=== PATIENT | male | born 1965 | race Caucasian/White ===

== ENCOUNTER → 2019-06-03 | Outpatient (CLI) | payer OTHER | LOC: YHH 15:42 ==

== ENCOUNTER 2021-09-27 02:50 | Observation (INO) | payer OTHER ==
[2021-09-27] MEDS ORDERED: FAMOTIDINE 20 MG/50 ML IVPB 20 MG/50 ML MG IVPB ONE ×2 (03:21→04:54)
[2021-09-27] MEDS ORDERED: SODIUM CHLORIDE 0.9% 500 ML INFUS.BAG IV ONE (03:21)
[2021-09-27] MEDS ORDERED: ONDANSETRON 4 MG/2 ML VIAL IVPUSH ONE (03:48)
[2021-09-27] MEDS ORDERED: ONDANSETRON 4 MG/2 ML VIAL ONE (04:54)
[2021-09-27 05:02] LABS: BASO % 0.9 % (0-2.0); HEMATOCRIT 38.1 % (35.4-49); HEMOGLOBIN 13.5 GM/dL (11.7-16.9); LYMPH % 10.7 % (8-40); MCH 31.7 pg (25.7-33.7); MCHC 35.5 g/dl (32.0-35.9); MEAN CELL VOLUME 89.5 fl (80-96); MEAN PLT VOLUME 6.4 fl (7.5-11.1); MONO % 5.1 % (3.8-10.2); NEUT % 83.3 % (42.8-82.8); PLATELET COUNT 238 10^3/uL (134-434); RBC 4.26 M/mm3 (4.00-5.60); RDW 13.2 % (11.9-15.9); WHITE BLOOD COUNT 5.3 K/mm3 (4.0-10.0)
[2021-09-27 05:23] LABS: CHLORIDE 89 mmol/L (98-107); SODIUM 121 mmol/L (136-145)
[2021-09-27 05:25] LABS: BLOOD UREA NITROGEN 7.2 mg/dL (7-18); CALCIUM 8.2 mg/dL (8.5-10.1)
[2021-09-27 05:26] LABS: ALBUMIN 3.2 g/dl (3.4-5.0); ANION GAP 10 MMOL/L (8-16); CO2 23 mmol/L (21-32); GLUCOSE,RANDOM 127 mg/dL (74-106); LIPASE 74 U/L (73-393); MAGNESIUM 1.9 mg/dL (1.8-2.4)
[2021-09-27 05:28] LABS: CREATININE 0.6 mg/dL (0.55-1.3)
[2021-09-27 05:29] LABS: SGOT/AST 18 U/L (15-37); SGPT/ALT 15 U/L (13-61)
[2021-09-27 05:30] LABS: TOT PROT 7.4 g/dl (6.4-8.2)
[2021-09-27 05:32] LABS: ALK PHOS 125 U/L (45-117)
[2021-09-27 08:08] LABS: BILIRUBIN,TOTAL 0.4 mg/dL (0.2-1)
[2021-09-27 08:13] LABS: PH,URINE 7.5 (5.0-8.0); URINE APPEARANCE CLEAR; URINE BILIRUBIN NEGATIVE (NEGATIVE); URINE COLOR YELLOW; URINE GLUCOSE (UA) NEGATIVE (NEGATIVE); URINE KETONE NEGATIVE (NEGATIVE); URINE LEUK ESTERASE NEGATIVE (NEGATIVE); URINE NITRITE NEGATIVE (NEGATIVE); URINE PROTEIN NEGATIVE (NEGATIVE); URINE UROBILINOGEN 0.2 mg/dL (0.2-1.0)
[2021-09-27] MEDS ORDERED: SODIUM CHLORIDE 1,000 ML IV SCH (09:15)
[2021-09-27 09:34] LABS: CREATININE, URINE RANDOM < 13.0 mg/dL (30-150)
[2021-09-27] MEDS: EMTRICITAB/RILPIVIRI/TENOF ALA (ODEFSEY) TABLET PO SCH (10:36)
[2021-09-27] MEDS: TRIHEXYPHENIDYL HCL 5 MG TABLET PO SCH ×3 (10:36→22:40)
[2021-09-27] MEDS ORDERED: diphenhydrAMINE HCL 25 MG CAPSULE (FP) PO ONE (18:32)
[2021-09-27] MEDS: diphenhydrAMINE HCL 25 MG CAPSULE (FP) PO PRN (18:34)
[2021-09-27] MEDS ORDERED: MAG HYDROX/AL HYDROX/SIMETH 30 ML UNIT-DOSE CUP PO ONE (22:00)
[2021-09-27] MEDS ORDERED: ACETAMINOPHEN 325 MG TABLET (FP) PO ONE (22:00)
[2021-09-27] MEDS ORDERED: ACETAMINOPHEN 325 MG TABLET (FP) ONE (22:03)
[2021-09-27] MEDS ORDERED: MAG HYDROX/AL HYDROX/SIMETH 30 ML UNIT-DOSE CUP ONE (22:04)
[2021-09-27] MEDS: NICOTINE 21 MG/24 HOURS TOPICAL PATCH TD SCH (23:50)
[2021-09-28] MEDS ORDERED: ONDANSETRON 4 MG/2 ML VIAL IVPUSH ONE (01:19)
[2021-09-28] MEDS ORDERED: LORazepam 2 MG/ML SDV VIAL IM ONE (01:27)
[2021-09-28] MEDS: amLODIPine BESYLATE 2.5 MG TABLET (FP) PO SCH (06:05)
[2021-09-28] MEDS: TRIHEXYPHENIDYL HCL 5 MG TABLET PO SCH ×3 (06:05→21:26)
[2021-09-28] MEDS ORDERED: PT OWN MED DRAWER 7, Y5N ONE ×2 (08:59→13:15)
[2021-09-28] MEDS: NICOTINE 21 MG/24 HOURS TOPICAL PATCH TD SCH (09:30)
[2021-09-28] MEDS: EMTRICITAB/RILPIVIRI/TENOF ALA (ODEFSEY) TABLET PO SCH (13:16)
[2021-09-28] MEDS: LORazepam 2 MG/ML SDV VIAL IM PRN (13:44)
[2021-09-28] MEDS ORDERED: ONDANSETRON 8 MG TABLET (FP) PO PRN (15:00)
[2021-09-28 17:30] LABS: BASO % 1.3 % (0-2.0); EOS % 0.2 % (0-4.5); HEMATOCRIT 41.6 % (35.4-49); HEMOGLOBIN 14.3 GM/dL (11.7-16.9); LYMPH % 26.3 % (8-40); MCH 31.4 pg (25.7-33.7); MCHC 34.4 g/dl (32.0-35.9); MEAN CELL VOLUME 91.4 fl (80-96); MEAN PLT VOLUME 7.2 fl (7.5-11.1); MONO % 13.9 % (3.8-10.2); NEUT % 58.3 % (42.8-82.8); PLATELET COUNT 267 10^3/uL (134-434); RBC 4.55 M/mm3 (4.00-5.60); RDW 13.9 % (11.9-15.9); WHITE BLOOD COUNT 4.4 K/mm3 (4.0-10.0)
[2021-09-28 17:37] LABS: CALCIUM 8.7 mg/dL (8.5-10.1)
[2021-09-28 17:38] LABS: ALBUMIN 3.1 g/dl (3.4-5.0); BLOOD UREA NITROGEN 5.8 mg/dL (7-18)
[2021-09-28 17:41] LABS: CREATININE 0.7 mg/dL (0.55-1.3)
[2021-09-28 17:43] LABS: BILIRUBIN,TOTAL 0.4 mg/dL (0.2-1); TOT PROT 7.2 g/dl (6.4-8.2)
[2021-09-28] MEDS ORDERED: SODIUM CHLORIDE 0.45% 1,000 ML IV SCH (18:15)
[2021-09-28] MEDS: ONDANSETRON 4 MG TABLET PO PRN (18:16)
[2021-09-28] MEDS ORDERED: ACETAMINOPHEN 325 MG TABLET (FP) PO ONE (21:46)
[2021-09-29] MEDS: ONDANSETRON 4 MG TABLET PO PRN (02:09)
[2021-09-29] MEDS: TRIHEXYPHENIDYL HCL 5 MG TABLET PO SCH ×3 (05:48→22:52)
[2021-09-29] MEDS: amLODIPine BESYLATE 2.5 MG TABLET (FP) PO SCH (06:02)
[2021-09-29] MEDS ORDERED: PT OWN MED DRAWER 7, Y5N ONE ×2 (08:23→21:20)
[2021-09-29 08:37] LABS: CALCIUM 8.7 mg/dL (8.5-10.1)
[2021-09-29 08:38] LABS: ALBUMIN 3.1 g/dl (3.4-5.0); BLOOD UREA NITROGEN 5.2 mg/dL (7-18)
[2021-09-29 08:41] LABS: CREATININE 0.7 mg/dL (0.55-1.3)
[2021-09-29 08:43] LABS: BILIRUBIN,TOTAL 0.7 mg/dL (0.2-1)
[2021-09-29] MEDS: NICOTINE 21 MG/24 HOURS TOPICAL PATCH TD SCH (09:07)
[2021-09-29] MEDS: ACETAMINOPHEN 325 MG TABLET (FP) PO PRN ×2 (09:07→18:23)
[2021-09-29] MEDS: EMTRICITAB/RILPIVIRI/TENOF ALA (ODEFSEY) TABLET PO SCH (09:08)
[2021-09-29] MEDS: diphenhydrAMINE HCL 25 MG CAPSULE (FP) PO PRN ×3 (10:05→22:52)
[2021-09-29 10:44] LABS: BASO % 0.3 % (0-2.0); EOS % 0.5 % (0-4.5); HEMATOCRIT 41.1 % (35.4-49); HEMOGLOBIN 14.3 GM/dL (11.7-16.9); LYMPH % 36.9 % (8-40); MCH 31.6 pg (25.7-33.7); MCHC 34.8 g/dl (32.0-35.9); MEAN PLT VOLUME 7.5 fl (7.5-11.1); MONO % 13.7 % (3.8-10.2); NEUT % 48.6 % (42.8-82.8); PLATELET COUNT 277 10^3/uL (134-434); RBC 4.52 M/mm3 (4.00-5.60); RDW 13.8 % (11.9-15.9)
[2021-09-29 12:18] VITALS: BMI 17.6
[2021-09-29] MEDS: SODIUM CHLORIDE 1 GM TABLET PO SCH ×2 (13:13→22:51)
[2021-09-29] MEDS: LIDOCAINE 5% TOPICAL PATCH TP SCH (13:13)
[2021-09-29] MEDS: LORazepam 2 MG/ML SDV VIAL IM PRN (19:20)
[2021-09-29] MEDS ORDERED: LIDOCAINE PATCH REMOVAL MC SCH (22:00)
[2021-09-30] MEDS: ACETAMINOPHEN 325 MG TABLET (FP) PO PRN (00:49)
[2021-09-30] MEDS ORDERED: KETOROLAC TROMETHAMINE 15 MG/ML VIAL IVPUSH ONE (02:05)
[2021-09-30] MEDS: amLODIPine BESYLATE 2.5 MG TABLET (FP) PO SCH (06:45)
[2021-09-30] MEDS: TRIHEXYPHENIDYL HCL 5 MG TABLET PO SCH ×2 (06:45→15:05)
[2021-09-30 07:00] VITALS: BP 130/76; PULSE 74; TEMP 98.3
[2021-09-30 08:44] LABS: BASO % 0.7 % (0-2.0); EOS % 0.3 % (0-4.5); HEMATOCRIT 42.6 % (35.4-49); LYMPH % 24.5 % (8-40); MCH 31.9 pg (25.7-33.7); MCHC 35.2 g/dl (32.0-35.9); MEAN CELL VOLUME 90.6 fl (80-96); MEAN PLT VOLUME 7.1 fl (7.5-11.1); MONO % 14.2 % (3.8-10.2); NEUT % 60.3 % (42.8-82.8); PLATELET COUNT 281 10^3/uL (134-434); RDW 13.4 % (11.9-15.9); WHITE BLOOD COUNT 6.8 K/mm3 (4.0-10.0)
[2021-09-30 09:02] LABS: BLOOD UREA NITROGEN 12.2 mg/dL (7-18)
[2021-09-30 09:03] LABS: ALBUMIN 3.2 g/dl (3.4-5.0)
[2021-09-30 09:06] LABS: CREATININE 0.8 mg/dL (0.55-1.3)
[2021-09-30] MEDS ORDERED: KETOROLAC TROMETHAMINE 10 MG TABLET PO PRN (09:06)
[2021-09-30 09:07] LABS: BILIRUBIN,TOTAL 0.5 mg/dL (0.2-1)
[2021-09-30] MEDS: diphenhydrAMINE HCL 25 MG CAPSULE (FP) PO PRN (09:50)
[2021-09-30] MEDS ORDERED: MULTIVITAMINS (DAILY MVI) TABLET (FP) PO SCH (10:00)
[2021-09-30] MEDS ORDERED: PT OWN MED DRAWER 7, Y5N ONE (10:50)
[2021-09-30] MEDS: SODIUM CHLORIDE 1 GM TABLET PO SCH (10:54)
[2021-09-30] MEDS: NICOTINE 21 MG/24 HOURS TOPICAL PATCH TD SCH (10:54)
[2021-09-30] MEDS: LIDOCAINE 5% TOPICAL PATCH TP SCH (10:55)
[2021-09-30] MEDS: EMTRICITAB/RILPIVIRI/TENOF ALA (ODEFSEY) TABLET PO SCH (10:56)
[2021-09-30] MEDS ORDERED: fluPHENAZine DECANOATE 125 MG/5ML VIAL IM ONE (14:00)
== END 2021-09-30 16:26 | disposition home or self-care (01) ==
LOC: JER 02:50 → JERBED 05:42 → UNDOADMOB 05:42 → INTOOBSV 05:42 → JERBED 11:32 → J7W 23:15
PROVIDERS: ADMIT Internal Medicine; ATTEND Nurse Practitioner Family
PROC: 3E033GC Introduction of Other Therapeutic Substance into Peripheral Vein, Percutaneous Approach (ICD-10-PCS; principal; 2021-09-27)
PROC: 3E023GC Introduction of Other Therapeutic Substance into Muscle, Percutaneous Approach (ICD-10-PCS; 2021-09-27)
PROC: 3E0333Z Introduction of Anti-inflammatory into Peripheral Vein, Percutaneous Approach (ICD-10-PCS; 2021-09-27)
PROC: 3E0337Z Introduction of Electrolytic and Water Balance Substance into Peripheral Vein, Percutaneous Approach (ICD-10-PCS; 2021-09-27)
DX: R10.13 Epigastric pain (principal); L93.0 Discoid lupus erythematosus; I10 Essential (primary) hypertension; F25.9 Schizoaffective disorder, unspecified; E87.1 Hypo-osmolality and hyponatremia; J30.1 Allergic rhinitis due to pollen; B20 Human immunodeficiency virus [HIV] disease; Z86.59 Personal history of other mental and behavioral disorders; Z88.8 Allergy status to other drugs, medicaments and biological substances; Z29.9 Encounter for prophylactic measures, unspecified; F17.210 Nicotine dependence, cigarettes, uncomplicated
CPT/HCPCS: 36415; 71046-TC-FY; 80053; 81003; 82550; 82553; 82570; 83690; 83735; 83930; 83935; 84300; 84484; 85025; 87086; 87804; 93005; 93010; 96361; 96365; 96372; 96375; 97116-GP; 97162-GP; 99285-25; C9803; G0378; U0003; U0005